=== PATIENT | female | born 1950 | race Caucasian/White ===

== ENCOUNTER 2019-06-04 04:48 | Emergency (ER) | payer MEDICARE, BC ==
[~2019-06-04] VITALS: Ht 167.6 cm; Wt 53.5 kg
--- NOTE | 2019-06-04 05:00 | NUR ---
Dr. De La Paz at bedside for MSE.
[2019-06-04] MEDS ORDERED: NEOMY/BACITRA/POLYMYXIN B OINT UD PACKET TP ONE ×2 (05:29→05:30)
[2019-06-04] MEDS ORDERED: LIDOCAINE HCL 2% 20 ML VIAL TP ONE (05:30)
--- NOTE | 2019-06-04 05:31 | NUR ---
Patient discharged to home in stable conditon. Written and verbal after care instructions given. Patient verbalizes understanding of instructions. Pt ambulated out of ER with steady gait, no acute signs of distress, VSS, all belongings taken.
[2019-06-04 05:32] VITALS: BP 109/69
== END 2019-06-04 05:33 | disposition home or self-care (01) ==
LOC: ER 04:59
DX: S01.111A Laceration without foreign body of right eyelid and periocular area, initial encounter (principal); J44.9 Chronic obstructive pulmonary disease, unspecified; Z88.0 Allergy status to penicillin; Z91.048 Other nonmedicinal substance allergy status; W18.39XA Other fall on same level, initial encounter; Y93.89 Activity, other specified; Y92.89 Other specified places as the place of occurrence of the external cause; Y99.8 Other external cause status
CPT/HCPCS: A4217; A4663